=== PATIENT | male | born 1990 | race Two or more races ===

== ENCOUNTER 2021-03-29 01:33 | Emergency (ER) | payer MEDICAID ==
[~2021-03-29] VITALS: Ht 175.3 cm; Wt 54.5 kg
[2021-03-29] MEDS ORDERED: ACETAMINOPHEN 500 MG TABLET PO ONE (03:15)
[2021-03-29 03:21] VITALS: BP 125/68
== END 2021-03-29 04:28 | disposition home or self-care (01) ==
LOC: EMS 01:35
DX: S61.217D Laceration without foreign body of left little finger without damage to nail, subsequent encounter (principal); X58.XXXD Exposure to other specified factors, subsequent encounter
CPT/HCPCS: 99283